=== PATIENT | female | born 1965 | race Caucasian/White ===

== ENCOUNTER → 2020-08-12 09:12 | Outpatient (BNVA) | payer OTHER, SELFPAY | PROVIDERS: PCP Internal Medicine; Visit Provider Surgery | DX: Z76.89 Persons encountering health services in other specified circumstances (principal) ==

== ENCOUNTER 2020-10-09 15:32 | Outpatient (REF) | payer OTHER, SELFPAY ==
--- NOTE | ~2020-10-09 | MM_ITS ---
EXAMINATION: MM SCREENING DIGITAL BREAST TOMOSYNTHESIS, BILATERAL CLINICAL INFORMATION: Screening. Asymptomatic. The lifetime risk of breast cancer based on the Tyrer-Cuzick Model is 16%. COMPARISON: Mammography: 09/24/2019, 09/04/2018, 04/04/2017; MRI breasts 04/09/2020 TECHNIQUE: Digital breast tomosynthesis is performed in both the craniocaudal and mediolateral oblique views along with computer-aided detection (CAD). Synthesized 2D images are generated from the tomosynthesis. Additional exaggerated right CC view is provided. FINDINGS: The breasts are heterogeneously dense, which may obscure small masses (ACR BI-RADS breast composition Category c). There are no significant masses, abnormal calcifications, or other abnormalities. No developing density. The skin contours are smooth. No significant changes. MM/MM tomosynthesis screening BI IMPRESSION: No mammographic evidence of malignancy. ASSESSMENT: BI-RADS 1: Negative RECOMMENDATION: Routine annual mammography screening. This patient's information was entered into a reminder system with a target due date for their next mammogram.
== END 2020-10-09 15:33 | disposition home or self-care (01) ==
LOC: HO.MAMMO 15:32
PROVIDERS: PCP Internal Medicine; Visit Provider Internal Medicine
DX: Z12.31 Encounter for screening mammogram for malignant neoplasm of breast (principal)
CPT/HCPCS: 77063; 77067

== ENCOUNTER → 2021-02-09 08:57 | Outpatient (BNVA) | payer OTHER, SELFPAY | PROVIDERS: PCP Internal Medicine; Visit Provider Surgery ==

== ENCOUNTER 2021-04-19 07:52 | Outpatient (REF) | payer OTHER, SELFPAY ==
--- NOTE | ~2021-04-19 | MR_ITS ---
EXAMINATION: MR BREAST WITHOUT AND WITH CONTRAST, BILATERAL CLINICAL INFORMATION: High-risk screening. COMPARISON: MRI 04/09/2020, 03/29/2019, 03/05/2018 TECHNIQUE: Imaging was performed with a dedicated breast coil. Prior to the administration of contrast, bilateral axial T1 and bilateral axial T2 weighted sequences were obtained. After the uneventful administration of?6.5 mL of Gadavist, dynamic contrast-enhanced VIBRANT series through the breasts in the axial plane were performed. Subtracted images were performed and reviewed. A delayed sagittal sequence through both breasts was acquired. Additionally, CAD post-processing, including maximum intensity projections, 3-D reconstructions and kinetic analysis, were performed an independent workstation and reviewed by the interpreting radiologist is a portion of this exam. FINDINGS: The patient's fibroglandular tissue demonstrates minimal background enhancement. LEFT BREAST: Stable focus of enhancement in the lower inner quadrant. No suspicious masslike or non-masslike enhancement. No abnormal skin thickening or nipple retraction. No abnormal architectural distortion. Review of the T2 weighted images demonstrates no fibrocystic changes or dilated ducts. Review of kinetic images reveals no additional findings. RIGHT BREAST: No suspicious masslike or non-masslike enhancement. No abnormal skin thickening or nipple retraction. No abnormal architectural distortion. Review of the T2 weighted images demonstrates no fibrocystic changes or dilated ducts. Review of kinetic images reveals no additional findings. There is no suspicious internal mammary chain or axillary adenopathy. Limited views of the chest and abdomen are unremarkable. MR/MR breast BI wo/w con IMPRESSION: No MR specific evidence of malignancy. ASSESSMENT: LEFT BREAST: BI-RADS 1-Negative RIGHT BREAST: BI-RADS 1-Negative RECOMMENDATIONS: Clinical follow-up. Continued annual mammographic surveillance. Further breast MRI as risk factors dictate.
== END 2021-04-19 07:53 | disposition home or self-care (01) ==
LOC: HO.MRI 07:52
PROVIDERS: PCP Internal Medicine; Visit Provider Surgery
DX: Z80.3 Family history of malignant neoplasm of breast (principal)
CPT/HCPCS: 77049; A9585

== ENCOUNTER → 2021-08-12 08:45 | Outpatient (BNVA) | payer OTHER, SELFPAY | PROVIDERS: PCP Internal Medicine; Referring Provider Internal Medicine; Visit Provider Surgery ==

== ENCOUNTER 2021-10-14 08:06 | Outpatient (REF) | payer OTHER, SELFPAY ==
--- NOTE | ~2021-10-14 | MM_ITS ---
EXAMINATION: MM SCREENING DIGITAL BREAST TOMOSYNTHESIS, BILATERAL CLINICAL INFORMATION: Screening. Asymptomatic. The lifetime risk of breast cancer based on the Tyrer-Cuzick Model is 16%. COMPARISON: Mammography: 10/09/2020, 09/24/2019, 09/04/2018, 04/04/2017, 03/16/2016; bilateral MR breast 04/19/2021. TECHNIQUE: Digital breast tomosynthesis is performed in both the craniocaudal and mediolateral oblique views along with computer-aided detection (CAD). Synthesized 2D images are generated from the tomosynthesis. Additional right MLO view is provided. FINDINGS: The breasts are heterogeneously dense, which may obscure small masses (ACR BI-RADS breast composition Category c). There are no significant masses, abnormal calcifications, or other abnormalities. Parenchymal pattern is similar to prior studies. The axilla and skin contours are unremarkable. There are no significant changes. MM/MM tomosynthesis screening BI IMPRESSION: No mammographic evidence of malignancy. ASSESSMENT: BI-RADS 1: Negative RECOMMENDATION: Routine annual mammography screening. This patient's information was entered into a reminder system with a target due date for their next mammogram.
== END 2021-10-14 08:07 | disposition home or self-care (01) ==
LOC: HO.MAMMO 08:06
PROVIDERS: Visit Provider Internal Medicine
DX: Z12.31 Encounter for screening mammogram for malignant neoplasm of breast (principal)
CPT/HCPCS: 77063; 77067

== ENCOUNTER 2022-04-27 09:30 | Outpatient (REF) | payer OTHER, SELFPAY ==
--- NOTE | ~2022-04-27 | MR_ITS ---
EXAMINATION: MR BREAST WITHOUT AND WITH CONTRAST, BILATERAL CLINICAL INFORMATION: 56-year-old for high-risk screening COMPARISON: MRI 04/19/2021, 04/09/2020, 03/29/2019, and 03/05/2018. Correlation to mammogram of 10/14/2021 TECHNIQUE: Imaging was performed with a dedicated breast coil. Prior to the administration of contrast, bilateral axial T1 and bilateral axial T2 weighted sequences were obtained. After the uneventful administration of?6.5 mL of Gadavist, dynamic contrast-enhanced VIBRANT series through the breasts in the axial plane were performed. Subtracted images were performed and reviewed. A delayed sagittal sequence through both breasts was acquired. Additionally, CAD post-processing, including maximum intensity projections, 3-D reconstructions and kinetic analysis, were performed an independent workstation and reviewed by the interpreting radiologist is a portion of this exam. FINDINGS: The patient's fibroglandular tissue demonstrates moderate background enhancement. There is moderate motion artifact which decreases the sensitivity of this examination. LEFT BREAST: No suspicious masslike or non-masslike enhancement. No abnormal skin thickening or nipple retraction. No abnormal architectural distortion. Review of the T2 weighted images demonstrates no fibrocystic changes or dilated ducts. Review of kinetic images reveals no additional findings. RIGHT BREAST: No suspicious masslike or non-masslike enhancement. No abnormal skin thickening or nipple retraction. No abnormal architectural distortion. Review of the T2 weighted images demonstrates no fibrocystic changes or dilated ducts. Review of kinetic images reveals no additional findings. There is no suspicious internal mammary chain or axillary adenopathy. Limited views of the chest and abdomen are unremarkable. MR/MR breast BI wo/w con IMPRESSION: No MR specific evidence of malignancy. ASSESSMENT: LEFT BREAST: BI-RADS 1-Negative RIGHT BREAST: BI-RADS 1-Negative RECOMMENDATIONS: Routine mammographic imaging as per most recent study and MRI as per high-risk protocol.
== END 2022-04-27 09:31 | disposition home or self-care (01) ==
LOC: HO.MRI 09:30
PROVIDERS: Visit Provider Surgery
DX: Z12.39 Encounter for other screening for malignant neoplasm of breast (principal); Z91.89 Other specified personal risk factors, not elsewhere classified; Z80.3 Family history of malignant neoplasm of breast
CPT/HCPCS: 77049; A9585

== ENCOUNTER → 2022-08-18 08:52 | Outpatient (BNVA) | payer OTHER, SELFPAY | PROVIDERS: PCP Internal Medicine; Visit Provider Surgery | DX: Z13.89 Encounter for screening for other disorder (principal) ==

== ENCOUNTER 2022-10-19 08:08 | Outpatient (REF) | payer OTHER, SELFPAY ==
--- NOTE | ~2022-10-19 | MM_ITS ---
EXAMINATION: MM SCREENING DIGITAL BREAST TOMOSYNTHESIS, BILATERAL CLINICAL INFORMATION: Screening. Asymptomatic. The lifetime risk of breast cancer based on the Tyrer-Cuzick Model is 16%. COMPARISON: Mammography: 10/14/2021, 10/09/2020, 09/24/2019; MR breasts 04/27/2022. TECHNIQUE: Digital breast tomosynthesis is performed in both the craniocaudal and mediolateral oblique views along with computer-aided detection (CAD). Synthesized 2D images are generated from the tomosynthesis. FINDINGS: The breasts are heterogeneously dense, which may obscure small masses (ACR BI-RADS breast composition Category c). There is fine fibronodular parenchymal pattern is similar to prior exams. There are no significant masses, abnormal calcifications, or other abnormalities. Parenchymal pattern is similar to prior studies. There is no developing density or architectural abnormality. The axilla and skin contours are unremarkable. No significant changes. MM/MM tomosynthesis screening BI IMPRESSION: No mammographic evidence of malignancy. ASSESSMENT: BI-RADS 1: Negative RECOMMENDATION: Routine annual mammography screening. This patient's information was entered into a reminder system with a target due date for their next mammogram.
== END 2022-10-19 08:09 | disposition home or self-care (01) ==
LOC: HO.MAMMO 08:08
PROVIDERS: PCP Internal Medicine; Visit Provider Internal Medicine
DX: Z12.31 Encounter for screening mammogram for malignant neoplasm of breast (principal)
CPT/HCPCS: 77063; 77067

== ENCOUNTER 2023-02-21 08:57 | Outpatient (AMB) | payer OTHER, SELFPAY ==
--- NOTE | 2023-02-21 09:04 | MHC.OFFVIS ---
Intake Vital Signs 02/21/23 09:12 Height 5 ft 3 in Weight 143 lb 8 oz BMI 25.4 BP 134/74 Blood Pressure Location Lt brachial Position Sitting Pulse 80 Intake Visit Reasons: 6 mth breast exam Intake Note: Patient is seen in office for 6 month follow up visit, breast exam. Pt c/o: denies any concerns since last visit Pie Baker Required: No Clinical Data Management Director: Clinical Data Management Director Present Accompanied by: Self / Same As Patient Allergies Penicillins [PENICILLINS] Allergy (Unknown, Unverified 02/21/23 09:12) UNKNKOW Medication List - Last Reconciled 02/21/23 by Yaya Rhodes MD aspirin 81 mg PO DAILY ezetimibe 10 mg PO DAILY HPI HPI Comments History of Present Illness Details 57-year-old female patient, former patient of Dr. Zuniga, being followed as part of the high risk breast cancer protocol. She is a patient of Harmony Massey and Dylan Morales found to be high risk for breast cancer with a calculated Tyrer-Cuzick score of 24% lifetime risk of breast cancer. Her sister has a history of breast cancer developed at the age of 50. Her sister is now in her 70s and is disease free. She is unsure of other family history. She has been undergoing twice yearly breast examinations and yearly breast MRI alternated with mammograms at 6 months intervals. Her latest bilateral mammogram dated 10/19/2022 revealed no mammographic evidence of malignancy (BI-RADS 1, ACR BI-RADS breast composition category C). A breast MRI on 04/27/2022 revealed no MR specific evidence of malignancy (BI-RADS 1 negative bilaterally). She denies any new breast symptoms or breast pain. Genetic testing performed in 2021 revealed no genetic mutations of known significance and no mutations of unknown significance. Her breast cancer risk score was calculated at 32.4 % well above the 20% threshold placing her at high risk. [facility] Medical History Hypercholesterolemia Surgical History History of adenoidectomy History of dental surgery History of ear surgery Hx of eye surgery (01/2023) Family History Sister History of breast cancer Social History Alcohol intake: current Alcohol intake frequency: holidays/special occasions only Review of Systems Const All systems reviewed & are unremarkable except as noted in HPI and below Denies chills, Denies fever(s), Denies headache(s) and Denies poor appetite ENT Denies dizziness and Denies headache(s) Card Denies chest pain, Denies rapid heart rate, Denies palpitations and Denies slow heart rate Resp Denies chest congestion, Denies cough, Denies pain on inspiration and Denies wheezing GI Denies abdominal pain, Denies bloating, Denies change in stool character, Denies constipation, Denies diarrhea, Denies nausea, Denies vomiting and Denies hematemesis Denies nipple discharge Musc Denies back pain, Denies arthralgias, Denies joint swelling and Denies numbness Skin/Breast Denies breast skin changes, Denies breast pain, Denies change in breast shape, Denies change in pigmentation, Denies nipple discharge, Denies erythema and Denies rash Neuro Denies confusion, Denies dizziness, Denies headache(s) and Denies numbness Psych Denies anxiety, Denies confusion and Denies depression Endo Denies palpitations Gary/Lymph Denies easy bleeding, Denies easy bruising and Denies lymphadenopathy Aller/Immun Denies wheezing Physical Exam Vital Signs: Last Vital Signs Pulse 80 02/21/23 09:12 BP 134/74 02/21/23 09:12 BMI result Body Mass Index 25.4 Const General: No confusion Nutritional Appearance: well nourished Orientation/consciousness: No confusion Eyes Sclerae: sclerae normal EOM: EOMs intact bilaterally Neck Neck: Yes normal visual inspection and Yes no lymphadenopathy Chest Other: Right breast: no nipple discharge or retraction, no skin changes, no axillary lymphadenopathy, no supraclavicular or infraclavicular fullness. Left breast: No nipple discharge or retraction, no skin changes, no axillary lymphadenopathy, no supraclavicular or infraclavicular fullness. Resp Effort & Inspection: normal respiratory effort, no cough and no respiratory distress Cardio Jugular venous distension: no JVD Skin General skin exam: dry skin Rashes: no rashes Neuro General: No confusion Extrem General: Yes full ROM and Yes no clubbing, cyanosis or edema Assessment & Plan Assessment & Plan (1) At high risk for breast cancer: Code(s): Z91.89 - Other specified personal risk factors, not elsewhere classified (2) Family history of breast cancer in first degree relative: Code(s): Z80.3 - Family history of malignant neoplasm of breast Plan 57-year-old female patient found to have strong family history of breast cancer due to her sister having breast cancer at the age of 50. She is being followed on a high risk breast cancer protocol. Genetic testing was negative for known mutations of clinical significance and mutations of unknown clinical significance. She remains asymptomatic and denies any changes on her self examination. Both mammogram and MRI have been normal. Examination today reveals no suspicious findings in either breast. Recommend continuing the annual breast MRI which will be due in April 2023 and mammogram due in October 2023.. She should return in 6 months for follow-up examination. Orders: Orders MR breast BI wo/w con 04/28/23 Z80.3 - Family history of malignant neoplasm of breast, Z91.89 - Other specified personal risk factors, not elsewhere classified Coding Level of Care Code Est Pt Level 3 (29817) Diagnoses At high risk for breast cancer Z91.89 Family history of breast cancer in first degree relative Z80.3
[2023-02-21 09:12] VITALS: BP 134/74; PULSE 80; BMI 25.4
== END 2023-02-21 09:23 | disposition home or self-care (01) ==
PROVIDERS: PCP Internal Medicine; Visit Provider Surgery
DX: Z91.89 Other specified personal risk factors, not elsewhere classified (principal); Z80.3 Family history of malignant neoplasm of breast
CPT/HCPCS: 99213

== ENCOUNTER → 2023-02-21 08:57 | Outpatient (BNVA) | payer OTHER, SELFPAY | PROVIDERS: PCP Internal Medicine; Visit Provider Surgery ==

== ENCOUNTER 2023-05-11 15:29 | Outpatient (REF) | payer OTHER, SELFPAY ==
--- NOTE | ~2023-05-11 | MR_ITS ---
EXAMINATION: MR BREAST WITHOUT AND WITH CONTRAST, BILATERAL CLINICAL INFORMATION: High-risk screening. COMPARISON: 07/27/2022, 04/19/2021 TECHNIQUE: Imaging was performed with a dedicated breast coil. Prior to the administration of contrast, bilateral axial T1 and bilateral axial T2 weighted sequences were obtained. After the uneventful administration of?7 mL of Gadavist, dynamic contrast-enhanced VIBRANT series through the breasts in the axial plane were performed. Subtracted images were performed and reviewed. A delayed sagittal sequence through both breasts was acquired. Additionally, CAD post-processing, including maximum intensity projections, 3-D reconstructions and kinetic analysis, were performed an independent workstation and reviewed by the interpreting radiologist is a portion of this exam. FINDINGS: The patient's fibroglandular tissue demonstrates moderate background enhancement. LEFT BREAST: No suspicious masslike or non-masslike enhancement. No abnormal skin thickening or nipple retraction. No abnormal architectural distortion. Review of the T2 weighted images demonstrates no fibrocystic changes or dilated ducts. Review of kinetic images reveals no additional findings. RIGHT BREAST: No suspicious masslike or non-masslike enhancement. No abnormal skin thickening or nipple retraction. No abnormal architectural distortion. Review of the T2 weighted images demonstrates no fibrocystic changes or dilated ducts. Review of kinetic images reveals no additional findings. There is no suspicious internal mammary chain or axillary adenopathy. Limited views of the chest and abdomen are unremarkable. MR/MR breast BI wo/w con IMPRESSION: No MR specific evidence of malignancy. ASSESSMENT: LEFT BREAST: BI-RADS 1-Negative RIGHT BREAST: BI-RADS 1-Negative RECOMMENDATIONS: Clinical follow-up. Continued annual mammographic surveillance. Further breast MRI as risk factors dictate.
== END 2023-05-11 15:30 | disposition home or self-care (01) ==
LOC: HO.MRI 15:29
PROVIDERS: PCP Internal Medicine; Visit Provider Surgery
DX: Z91.89 Other specified personal risk factors, not elsewhere classified (principal); Z80.3 Family history of malignant neoplasm of breast
CPT/HCPCS: 77049; A9585

== ENCOUNTER 2023-08-25 08:57 | Outpatient (AMB) | payer OTHER, SELFPAY ==
--- NOTE | 2023-08-25 09:04 | MHC.OFFVIS ---
Intake Vital Signs 08/25/23 09:11 Height 5 ft 3 in Weight 149 lb 2 oz BMI 26.4 BP 122/75 Blood Pressure Location Lt brachial Position Sitting Pulse 80 Intake Visit Reasons: 6 mth breast exam Intake Note: Patient is seen in office for 6 month follow up visit, breast exam. Pt c/o: denies any concerns or changes at the time of visit mm sched:10/23/23 B MRI:05/11/23 Institutional Asset Manager Required: No Accompanied by: Self / Same As Patient Allergies Penicillins [PENICILLINS] Allergy (Unknown, Unverified 08/25/23 09:08) UNKNKOW Medication List - Last Reconciled 08/25/23 by Yaya Rhodes MD aspirin 81 mg PO DAILY ezetimibe 10 mg PO DAILY HPI HPI Comments History of Present Illness Details 57-year-old female patient, former patient of Dr. Zuniga, being followed as part of the high risk breast cancer protocol. She is a patient of Harmony Massey and Dylan Morales found to be high risk for breast cancer with a calculated Tyrer-Cuzick score of 24% lifetime risk of breast cancer. Her sister has a history of breast cancer developed at the age of 50. Her sister is now in her 70s and is disease free. She is unsure of other family history. She has been undergoing twice yearly breast examinations and yearly breast MRI alternated with mammograms at 6 months intervals. Her latest bilateral mammogram dated 10/19/2022 revealed no mammographic evidence of malignancy (BI-RADS 1, ACR BI-RADS breast composition category C). A breast MRI on 05/11/2023 revealed no MR evidence of malignancy (BI-RADS 1 bilaterally). She denies any new breast symptoms or breast pain. Genetic testing performed in 2021 revealed no genetic mutations of known significance and no mutations of unknown significance. Her breast cancer risk score was calculated at 32.4 % well above the 20% threshold placing her at high risk. [facility] Medical History Hypercholesterolemia Surgical History Hx of eye surgery (01/2023) History of dental surgery History of ear surgery History of adenoidectomy Family History Sister History of breast cancer Social History Alcohol intake: current Alcohol intake frequency: holidays/special occasions only Review of Systems Const All systems reviewed & are unremarkable except as noted in HPI and below Denies chills, Denies fever(s), Denies headache(s) and Denies poor appetite ENT Denies dizziness and Denies headache(s) Card Denies chest pain, Denies rapid heart rate, Denies palpitations and Denies slow heart rate Resp Denies chest congestion, Denies cough, Denies pain on inspiration and Denies wheezing GI Denies abdominal pain, Denies bloating, Denies change in stool character, Denies constipation, Denies diarrhea, Denies nausea, Denies vomiting and Denies hematemesis Denies nipple discharge Musc Denies back pain, Denies arthralgias, Denies joint swelling and Denies numbness Skin/Breast Denies breast skin changes, Denies breast pain, Denies change in breast shape, Denies change in pigmentation, Denies nipple discharge, Denies erythema and Denies rash Neuro Denies confusion, Denies dizziness, Denies headache(s) and Denies numbness Psych Denies confusion Endo Denies palpitations Gary/Lymph Denies easy bleeding, Denies easy bruising and Denies lymphadenopathy Aller/Immun Denies wheezing Physical Exam Vital Signs: Last Vital Signs Pulse 80 08/25/23 09:11 BP 122/75 08/25/23 09:11 BMI result Body Mass Index 26.4 Const General: No confusion Nutritional Appearance: well nourished Orientation/consciousness: No confusion Eyes Sclerae: sclerae normal EOM: EOMs intact bilaterally Neck Neck: Yes normal visual inspection and Yes no lymphadenopathy Chest Other: Right breast: no nipple discharge or retraction, no skin changes, no axillary lymphadenopathy, no supraclavicular or infraclavicular fullness. Left breast: No nipple discharge or retraction, no skin changes, no axillary lymphadenopathy, no supraclavicular or infraclavicular fullness. Resp Effort & Inspection: normal respiratory effort, no cough and no respiratory distress Cardio Jugular venous distension: no JVD Skin General skin exam: dry skin Rashes: no rashes Neuro General: No confusion Extrem General: Yes full ROM and Yes no clubbing, cyanosis or edema Assessment & Plan Assessment & Plan (1) At high risk for breast cancer: Code(s): Z91.89 - Other specified personal risk factors, not elsewhere classified (2) Family history of breast cancer in first degree relative: Code(s): Z80.3 - Family history of malignant neoplasm of breast Plan 57-year-old female patient found to have strong family history of breast cancer due to her sister having breast cancer at the age of 50. She is being followed on a high risk breast cancer protocol. Genetic testing was negative for known mutations of clinical significance and mutations of unknown clinical significance. She remains asymptomatic and denies any changes on her self examination. Both mammogram and MRI have been normal. Examination today reveals no suspicious findings in either breast. Recommend continuing the annual breast MRI which will be due in April 2024 and mammogram scheduled for 10/23/2023. She should return in 6 months for follow-up examination. Coding Level of Care Code Est Pt Level 3 (96150) Diagnoses At high risk for breast cancer Z91.89 Family history of breast cancer in first degree relative Z80.3
[2023-08-25 09:11] VITALS: BP 122/75; PULSE 80; BMI 26.4
== END 2023-08-25 09:21 | disposition home or self-care (01) ==
PROVIDERS: PCP Internal Medicine; Visit Provider Surgery
DX: Z80.3 Family history of malignant neoplasm of breast (principal); Z91.89 Other specified personal risk factors, not elsewhere classified
CPT/HCPCS: 99213

== ENCOUNTER → 2023-08-25 08:57 | Outpatient (BNVA) | payer OTHER, SELFPAY | PROVIDERS: PCP Internal Medicine; Visit Provider Surgery ==

== ENCOUNTER 2023-10-23 07:55 | Outpatient (REF) | payer OTHER, SELFPAY | END 2023-10-23 07:56 | disposition home or self-care (01) | LOC: HO.MAMMO 07:55 | PROVIDERS: PCP Internal Medicine; Visit Provider Internal Medicine | DX: Z12.31 Encounter for screening mammogram for malignant neoplasm of breast (principal) | CPT/HCPCS: 77063; 77067 ==

== ENCOUNTER → 2023-10-23 08:15 | Outpatient (BNV) | payer OTHER, SELFPAY | PROVIDERS: PCP Internal Medicine; Visit Provider Radiology Diagnostic Radiology | DX: Z12.31 Encounter for screening mammogram for malignant neoplasm of breast (principal) | CPT/HCPCS: 77063; 77067 ==

== ENCOUNTER 2024-02-27 15:27 | Outpatient (AMB) | payer OTHER, SELFPAY ==
--- NOTE | 2024-02-27 15:31 | A.OFFVIS_ITS ---
Vital Signs 02/27/24 15:40 Height 5 ft 3 in Weight 147 lb BMI 26.0 BP 155/73 H Blood Pressure Location Lt brachial Position Sitting Pulse 83 Intake Visit Reasons: 6 mth breast exam Intake Note: Patient is seen in office for 6 month follow up visit, breast exam. Pt c/o: denies any concerns at the time of visit mm: 10/23/23 MRI: 05/11/23 Skip Pit Worker Required: No Board Stacker: Board Stacker Present Accompanied by: Self / Same As Patient Allergies Penicillins [PENICILLINS] Allergy (Unknown, Unverified 02/27/24 15:32) UNKNKOW Medication List - Last Reconciled 02/28/24 by Yaya Rhodes MD aspirin 81 mg PO DAILY ezetimibe 10 mg PO DAILY HPI Comments Details: 58-year-old female patient, former patient of Dr. Zuniga, being followed as part of the high risk breast cancer protocol. [facility] lifetime risk of breast cancer was calculated at 24%. Her sister developed breast cancer at the age of 50. Her sister remains disease free. She is unsure of other family history. She has been undergoing twice yearly breast examinations and yearly breast MRI alternated with mammograms at 6 months intervals. Her latest bilateral mammogram dated 10/23/2023 revealed no mammographic evidence of malignancy (BI-RADS 1, ACR BI-RADS breast composition category C). A breast MRI on 05/11/2023 revealed no MR evidence of malignancy (BI-RADS 1 bilaterally). She denies any new breast symptoms or breast pain. Genetic testing performed in 2021 revealed no genetic mutations of known significance and no mutations of unknown significance. Her breast cancer risk score was calculated at 32.4 % well above the 20% threshold placing her at high risk. COUNT INCLUDES THE [facility] Medical History Hypercholesterolemia Surgical History Hx of eye surgery (01/2023) History of dental surgery History of ear surgery History of adenoidectomy Family History Sister History of breast cancer Social History Alcohol intake: current Alcohol intake frequency: holidays/special occasions only Review of Systems Const All systems reviewed & are unremarkable except as noted in HPI and below Denies chills, Denies fever(s), Denies headache(s) and Denies poor appetite ENT Denies dizziness and Denies headache(s) Card Denies chest pain, Denies rapid heart rate, Denies palpitations and Denies slow heart rate Resp Denies chest congestion, Denies cough, Denies pain on inspiration and Denies wheezing GI Denies abdominal pain, Denies bloating, Denies change in stool character, Denies constipation, Denies diarrhea, Denies nausea, Denies vomiting and Denies hematemesis Denies nipple discharge Musc Denies back pain, Denies arthralgias, Denies joint swelling and Denies numbness Skin/Breast Denies breast skin changes, Denies breast pain, Denies change in breast shape, Denies change in pigmentation, Denies nipple discharge, Denies erythema and Denies rash Neuro Denies confusion, Denies dizziness, Denies headache(s) and Denies numbness Psych Denies confusion Endo Denies palpitations Gary/Lymph Denies easy bleeding, Denies easy bruising and Denies lymphadenopathy Aller/Immun Denies wheezing Physical Exam Vital Signs: Last Vital Signs Pulse 83 02/27/24 15:40 BP 155/73 H 02/27/24 15:40 BMI result Body Mass Index 26.0 Const General: No confusion Nutritional Appearance: well nourished Orientation/consciousness: No confusion Eyes Sclerae: sclerae normal EOM: EOMs intact bilaterally Neck Neck: Yes normal visual inspection and Yes no lymphadenopathy Chest Other: Right breast: no nipple discharge or retraction, no skin changes, no axillary lymphadenopathy, no supraclavicular or infraclavicular fullness. Left breast: No nipple discharge or retraction, no skin changes, no axillary lymphadenopathy, no supraclavicular or infraclavicular fullness. Resp Effort & Inspection: normal respiratory effort, no cough and no respiratory distress Cardio Jugular venous distension: no JVD Skin General skin exam: dry skin Rashes: no rashes Neuro General: No confusion Extrem General: Yes full ROM and Yes no clubbing, cyanosis or edema Assessment & Plan Assessment & Plan (1) At high risk for breast cancer: Code(s): Z91.89 - Other specified personal risk factors, not elsewhere classified Category: Medical (2) Family history of breast cancer in first degree relative: Code(s): Z80.3 - Family history of malignant neoplasm of breast Category: Medical Plan 58-year-old female patient found to have strong family history of breast cancer due to her sister having breast cancer at the age of 50. She is being followed on a high risk breast cancer protocol. Genetic testing was negative for known mutations of clinical significance and mutations of unknown clinical significance. She remains asymptomatic and denies any changes on her self examination. Both mammogram and MRI have been normal. Examination today reveals no suspicious findings in either breast. Recommend continuing the annual breast MRI which will be due in April 2024 and mammogram due in October 2024.. She should return in 6 months for follow-up examination. Coding Level of Care Code Est Pt Level 3 (49935) Diagnoses At high risk for breast cancer Z91.89 Family history of breast cancer in first degree relative Z80.3
[2024-02-27 15:40] VITALS: BP 155/73; PULSE 83; BMI 26.0
== END 2024-02-27 15:50 | disposition home or self-care (01) ==
PROVIDERS: PCP Internal Medicine; Visit Provider Surgery
DX: Z80.3 Family history of malignant neoplasm of breast (principal); Z91.89 Other specified personal risk factors, not elsewhere classified
CPT/HCPCS: 99213

== ENCOUNTER → 2024-02-27 15:27 | Outpatient (BNVA) | payer OTHER, SELFPAY | PROVIDERS: PCP Internal Medicine; Visit Provider Surgery ==

== ENCOUNTER → 2024-09-13 08:17 | Outpatient (AMB) | payer OTHER, SELFPAY ==
--- NOTE | 2024-09-13 08:30 | A.OFFVIS_ITS ---
Vital Signs 09/13/24 08:37 Height 5 ft 3 in Weight 145 lb BMI 25.7 BP 140/77 H Blood Pressure Location Rt brachial Position Sitting Pulse 80 Intake Visit Reasons: 6 Month Breast Exam Intake Note: Patient here for 6m breast exam. Denies breasts lumps, rash, nipple discharge. Patient reports recent Mohs on Rt nasal root for basal cell carcinoma. Scar healing well. Bass Mechanism Maker Required: No Accompanied by: Self / Same As Patient Allergies Penicillins [PENICILLINS] Allergy (Unknown, Unverified 09/13/24 08:38) UNKNKOW HPI Comments Details: 59-year-old female patient, former patient of Dr. Zuniga, being followed as part of the high risk breast cancer protocol. Her [facility] remaining lifetime risk of breast cancer was calculated at 24%. Her sister developed breast cancer at the age of 50. Her sister remains disease free. She is unsure of other family history. She has been undergoing twice yearly breast examinations and yearly breast MRI alternated with mammograms at 6 months intervals. Her latest bilateral mammogram dated 10/23/2023 revealed no mammographic evidence of malignancy (BI-RADS 1, ACR BI-RADS breast composition category C). She is scheduled for her annual mammogram in 11/04/2024. A breast MRI on 05/11/2023 revealed no MR evidence of malignancy (BI-RADS 1 bilaterally). No breast MRI was performed last year. Genetic testing performed in 2021 revealed no genetic mutations of known significance and no mutations of unknown significance. Her breast cancer risk score was calculated at 32.4 % well above the 20% threshold placing her at high risk. [facility] Medical History Mohs defect Hypercholesterolemia Surgical History Hx of eye surgery (01/2023) History of dental surgery History of ear surgery History of adenoidectomy Family History Sister History of breast cancer Social History Alcohol intake: current Alcohol intake frequency: holidays/special occasions only Review of Systems Const All systems reviewed & are unremarkable except as noted in HPI and below Neuro Denies confusion Psych Denies confusion Physical Exam Vital Signs: Last Vital Signs Pulse 80 09/13/24 08:37 BP 140/77 H 09/13/24 08:37 BMI result Body Mass Index 25.7 Const General: No confusion Nutritional Appearance: well nourished Orientation/consciousness: No confusion Eyes Sclerae: sclerae normal EOM: EOMs intact bilaterally Neck Neck: Yes normal visual inspection and Yes no lymphadenopathy Chest Other: Right breast: no nipple discharge or retraction, no skin changes, no axillary lymphadenopathy, no supraclavicular or infraclavicular fullness. Left breast: No nipple discharge or retraction, no skin changes, no axillary lymphadenopathy, no supraclavicular or infraclavicular fullness. Resp Effort & Inspection: normal respiratory effort, no cough and no respiratory distress Cardio Jugular venous distension: no JVD Skin General skin exam: dry skin Rashes: no rashes Neuro General: No confusion Extrem General: Yes full ROM and Yes no clubbing, cyanosis or edema Assessment & Plan Assessment & Plan (1) Family history of breast cancer in first degree relative: Code(s): Z80.3 - Family history of malignant neoplasm of breast Category: Medical (2) At high risk for breast cancer: Code(s): Z91.89 - Other specified personal risk factors, not elsewhere classified Category: Medical Plan 59-year-old female patient found to have strong family history of breast cancer due to her sister having breast cancer at the age of 50. She is being followed on a high risk breast cancer protocol. Genetic testing was negative for known mutations of clinical significance and mutations of unknown clinical significance. She remains asymptomatic and denies any changes on her self examination. She is due for a mammogram on 11/04/2024. She will be scheduled for a breast MRI in 05/26/2025. Examination today reveals no suspicious findings in either breast. She should return in 6 months for follow-up examination. Orders: Orders breast BI wo/w con 05/12/25 Z80.3 - Family history of malignant neoplasm of breast, Z91.89 - Other specified personal risk factors, not elsewhere classified Coding Level of Care Code Est Pt Level 3 (46862) Complex EM visit Add On G2211 Diagnoses Family history of breast cancer in first degree relative Z80.3 At high risk for breast cancer Z91.89
== END | disposition home or self-care (01) ==
PROVIDERS: PCP Internal Medicine; Visit Provider Surgery
CPT/HCPCS: 99213

== ENCOUNTER 2024-11-04 07:59 | Outpatient (REF) | payer OTHER, SELFPAY | END 2024-11-04 08:00 | disposition home or self-care (01) | LOC: HO.MAMMO 07:59 | PROVIDERS: PCP Internal Medicine; Visit Provider Internal Medicine | DX: Z12.31 Encounter for screening mammogram for malignant neoplasm of breast (principal) | CPT/HCPCS: 77063; 77067 ==

== ENCOUNTER → 2024-11-04 08:15 | Outpatient (BNV) | payer OTHER, SELFPAY | PROVIDERS: PCP Internal Medicine; Visit Provider Internal Medicine | DX: Z12.31 Encounter for screening mammogram for malignant neoplasm of breast (principal) | CPT/HCPCS: 77063; 77067 ==

== ENCOUNTER 2025-03-13 08:08 | Outpatient (AMB) | payer OTHER, SELFPAY ==
--- OUTSIDE RECORDS SUMMARY | 2025-03-11 08:26 | XMS_ITS ---
Author Organization [facility] Address [address] [place] [address] Care Team Providers Care Retail Sales Merchandiser Development Name Role Phone SUZANNA ACOSTA Primary Care Provider [phone] Reason For Referral Reason NEOS Diagnosis 1 Right elbow pain (M2 5.521) Referral Organization [facility] [address] Referring Provider First Name SUZANNA Referring Provider Last Name KARLA Referring Provider Speciality Internal M edicine Referred Provider Specialty Orthopedic S urgery General Notes Lizz Sharpe 12/2024 12:27:54 PM > Pt given referral faxed to [phone] Referral Priority Routine Encounters Encounter Location Date Provider Diagnosis [facility] [address] [facility] [address] [place] [address] 03/11/2025 SUZANNA ACOSTA Plan Of Treatment Referrals Referral Date Details 03/11/2025 03/11/2025, [facility]OS Next Appt Details Provider Name:DALILA PEÑA, 06/11/2025 08:30:00 AM, [address], [facility] [address], [place], [address], Progress Notes * PAULINA GARCIAEEDOB:[birth year] (59 yo F)Acc No.[id number]:03/11/2025 Patient: DILAN SANTAMARIA :1965 A ge:59 Y S ex:Female Address:[address] [place] [id number] Subjective: * Chief Complaints: * * Medical History: * Surgical History: * Hospitalization/Major Diagno stic Procedure: * Medications: Objective: * Vitals: * Physical Examination: Assessment: Plan: * Treatment: * Procedure Codes: * true * Date: Generated for Valeriano elizabeth/Taiwo/Petr on: 0 03/13/2025 08:12 AM EDT Consultation Request Notes Referral Date Referring Provider Referred Provider Not es 03/11/2025 SUZANNA ACOSTA [facility]OS
--- OUTSIDE RECORDS SUMMARY | 2025-03-13 08:12 | XMS_ITS | Patient Health Record ---
[facility] Address [address] [place] [address] Care Team Providers Care Hardware Engineer Name Role Phone Jasson Storey MD Primary Care Provider Severiano Dozier Unavailable [phone] Allergies Allergen (clinical drug ingredient) Drug/Non Drug Allergy documented on EMR Reaction Allergy Type Onset Date Status Penicillin unsure Drug Allergy Active Reason For Referral No Information Medications Medication SIG (Take, Route, Frequency, Duration) Notes Start Date End Date Status Calcium + D 600-200 MG-UNIT 1 tablet with food Orally Once a day; Duration: 30 day(s) Active Social History Alcohol Screen Question Answer Notes Did you have a drink containing alcohol in the p ast year? Yes Points 0 Interpretation Negative Problems Problem Type SNOMED Code ICD Code Onset Dates Problem Status W/U Status Risk Notes Problem Hallux Valgus (735.0) Active confirmed Plan Of Treatment Pending Test Test Name Order Date X ray : Foot, left 3V 09/12/2012 X ray : Foot, right 3V 09/12/2012 Insurance Providers Payer Name Payer Address Payer Phone Subscriber Number Group Number Insured Name Patient Relationship to Insured Coverage Start Date Coverage End Date [employer] [address] [place] [phone] [id number] Keiko Taylor Self - patient is the insured Medical (General) History Medical History History ICD Code anxiety back, hip, knee pain chicken pox Surgical History Surgery Date(Month/Year) adnoidectomy (child rodriguez) oral surgery 2007
--- OUTSIDE RECORDS SUMMARY | 2025-03-13 08:13 | XMS_ITS | Encounter Summary ---
Author Organization [facility] Address [address] [place] [address] Care Team Providers Care Slip Mixer Name Role Phone Fish Dodson VINI Primary Care Provider [phone] Encounter Details Date Type Department Care Team (Latest Contact Info) Description 01/13/2025 Lab Requisition [facility] - Main Lab [address] [place] [address] Dylan Morales MD [address] [address] Encounter for gynecological examination (general) (routine) without abnormal findings Social History Tobacco Use Types Packs/Day Years Used Date Smoking Tobacco: Never Assessed Comments Unknown Sex and Gender Information Value Date Recorded Sex Assigned at Not on file Legal Sex Female 6:44 AM EST Gender Identity Not on file Sexual Orientation Not on file documented as of this encounter Plan of Treatment Not on file documented as of this encounter Procedures Procedure Name Priority Date/Time Associated Diagnosis Comments PAP SMEAR Routine 01/10/2025 12:00 AM EDT Encounter for gynecological examination (general) (routine) without abnormal findings documented in this encounter Results * Pap smear (01/10/2025 12:00 AM EDT) Interpretation Negative for intraepithelial lesion or malignancy 01/15/2025 1:23 PM EDT [facility] ([facility]) [facility] General Categorization Negative 01/15/2025 1:23 PM EDT [facility] Specimen Adequacy Satisfactory for evaluation, endocervical/savage sformation zone component present 01/15/2025 1:23 PM [facility] Pap Methodology Liquid Based Pap Test 01/15/2025 1:23 PM [facility] Disclaimer The Pap test is a screening test which carries an inherent false negative rate. These test results should be correlated with the patient's clinical findings and history. This Pap test was processed using an automated screening system. Technical cytopathology services provided by [facility], at [address] [place] [address] (CLIA # [id number]/James Van MD, Youth Services Librarian.) 01/15/2025 1:23 PM [facility] Console Pap Interpretation Reported 01/15/2025 1:23 PM [facility] Brushing/Spatula Cervix uteri structure / Unknown 01/10/2025 01/13/2025 7:28 AM EDT us Dylan Morales MD LAB CYTOLOGY ORDERABLES Final Result [facility] [address] [place] [address], [place] [phone] documented in this encounter Visit Diagnoses Diagnosis Encounter for gynecological examination (general) (routine) without abnormal findings documented in this encounter Care Teams Slip Mixer Relationship Specialty Start Date End Date Fish Dodson NP [address] [address] PCP - General Nurse Practitioner 12/09/24 documented as of this encounter
--- NOTE | 2025-03-13 08:15 | MHC.OFFVIS ---
Vital Signs 03/13/25 08:22 Height 5 ft 3 in Weight 144 lb BMI 25.5 BP 149/83 H Blood Pressure Location Lt brachial Position Sitting Pulse 78 Intake Visit Reasons: 6 Month Breast Exam Intake Note: Patient is seen in office for 6 month follow up visit, breast exam. Pt c/o:no concerns. Denies br lumps, rash, pain, nipple discharge. Patient fell 1wk ago and fractured elbow. Today she is wearing a Rt arm sling mm:05/11/23 MRI:11/04/24 Ecommerce Project Manager Required: No Accompanied by: Self / Same As Patient Allergies Penicillins (PENICILLINS) Allergy (Unknown, Unverified 03/13/25 08:25) UNKNKOW HPI Comments Details: 59-year-old female patient, former patient of Dr. Zuniga, being followed as part of the high risk breast cancer protocol. Her [facility] remaining lifetime risk of breast cancer was calculated at 24%. Her sister developed breast cancer at the age of 50. Her sister remains disease free. She is unsure of other family history. She has been undergoing twice yearly breast examinations and yearly breast MRI alternated with mammograms at 6 months intervals. Her latest bilateral mammogram dated 11/04/2024 revealed no mammographic evidence of malignancy (BI-RADS 1, ACR BI-RADS breast composition category C). She is scheduled for her annual mammogram in 11/10/2025. A breast MRI on 05/11/2023 revealed no MR evidence of malignancy (BI-RADS 1 bilaterally). No breast MRI was performed last year. Genetic testing performed in 2021 revealed no genetic mutations of known significance and no mutations of unknown significance. Her breast cancer risk score was calculated at 32.4 % well above the 20% threshold placing her at high risk. She is planned to have a breast MRI in May 2025. She reports tripping on a computer cord and fracturing her right elbow 1 week ago. She is awaiting orthopedic evaluation later today. [facility] Medical History Mohs defect Hypercholesterolemia Surgical History Hx of eye surgery (01/2023) History of dental surgery History of ear surgery History of adenoidectomy Family History Sister History of breast cancer Social History Alcohol intake: current Alcohol intake frequency: holidays/special occasions only Review of Systems Const All systems reviewed & are unremarkable except as noted in HPI and below Neuro Denies confusion Psych Denies confusion Physical Exam Vital Signs: Last Vital Signs Pulse 78 03/13/25 08:22 BP 149/83 H 03/13/25 08:22 BMI result Body Mass Index 25.5 Const General: No confusion Nutritional Appearance: well nourished Orientation/consciousness: No confusion Eyes Sclerae: sclerae normal EOM: EOMs intact bilaterally Neck Neck: Yes normal visual inspection and Yes no lymphadenopathy Chest Other: Right breast: no nipple discharge or retraction, no skin changes, no axillary lymphadenopathy, no supraclavicular or infraclavicular fullness. Left breast: No nipple discharge or retraction, no skin changes, no axillary lymphadenopathy, no supraclavicular or infraclavicular fullness. Resp Effort & Inspection: normal respiratory effort, no cough and no respiratory distress Cardio Jugular venous distension: no JVD Skin General skin exam: dry skin Rashes: no rashes Neuro General: No confusion Extrem General: Yes full ROM and Yes no clubbing, cyanosis or edema Assessment & Plan Assessment & Plan (1) Family history of breast cancer in first degree relative: Code(s): Z80.3 - Family history of malignant neoplasm of breast Category: Medical (2) At high risk for breast cancer: Code(s): Z91.89 - Other specified personal risk factors, not elsewhere classified Category: Medical Plan 59-year-old female patient found to have strong family history of breast cancer due to her sister having breast cancer at the age of 50. She is being followed on a high risk breast cancer protocol. Genetic testing was negative for known mutations of clinical significance and mutations of unknown clinical significance. She remains asymptomatic and denies any changes on her self examination. Her most recent mammogram of 11/04/2024 revealed no mammographic evidence of malignancy (BI-RADS 1). She will be due for a breast MRI in May 2025. Examination today reveals no suspicious findings in either breast. She should return in 6 months for follow-up examination. Coding Level of Care Code Est Pt Level 3 (81038) Complex EM visit Add On G2211 Diagnoses Family history of breast cancer in first degree relative Z80.3 At high risk for breast cancer Z91.89
[2025-03-13 08:22] VITALS: BP 149/83; PULSE 78; BMI 25.5
== END 2025-03-13 08:33 | disposition home or self-care (01) ==
LOC: HO.HGS 08:08
PROVIDERS: PCP Internal Medicine; Visit Provider Surgery
DX: Z80.3 Family history of malignant neoplasm of breast (principal); Z91.89 Other specified personal risk factors, not elsewhere classified
CPT/HCPCS: 99213

== ENCOUNTER → 2025-06-02 08:06 | Outpatient (BNV) | payer OTHER, SELFPAY | PROVIDERS: PCP Internal Medicine; Visit Provider Internal Medicine | DX: Z80.3 Family history of malignant neoplasm of breast (principal) | CPT/HCPCS: 77049 ==

== ENCOUNTER 2025-06-02 08:44 | Outpatient (REF) | payer OTHER, SELFPAY ==
--- NOTE | ~2025-06-02 | MR_ITS ---
EXAMINATION: MR BREAST WITHOUT AND WITH CONTRAST, BILATERAL CLINICAL INFORMATION: High risk strong family history of breast cancer including patient's sister. COMPARISON: Comparison is made with relevant prior imaging. TECHNIQUE: MR imaging of the breast was performed using T1, T2 and fat saturated techniques. Dynamic multiphase imaging was also performed after the administration of intravenous gadolinium contrast agent. Computer generated 3D reconstruction and enhancement kinetic analysis was ulitized by the radiologist in the interpretation of this examination. FINDINGS: Breast composition: Heterogeneous fibroglandular breast tissue Background parenchymal enhancement: Moderate LEFT BREAST: No suspicious enhancing masses or areas of non mass enhancement. No axillary or internal mammary adenopathy. RIGHT BREAST: No suspicious enhancing masses or areas of non mass enhancement. No axillary or internal mammary adenopathy. Limited views of the chest and abdomen are unremarkable. MR/MR breast BI wo/w con IMPRESSION: No MR specific evidence of malignancy. ASSESSMENT: LEFT BREAST: BI-RADS 1-Negative RIGHT BREAST: BI-RADS 1-Negative RECOMMENDATIONS: Yearly screening mammography Yearly Breast MRI screening surveillance. Electronically signed by: Laura Ford DO 06/03/2025 02:39 PM EDT
--- OUTSIDE RECORDS SUMMARY | 2025-06-02 09:17 | XMS_ITS | Clinical Summary ---
Author Organization [address] [facility] Address [address] [place] [address] Phone Care Team Providers Care Mechanical Energy Engineer Name Role Phone Fish Dodson NP Primary Care Provider [phone] Encounters Date Type Department Care Team Description 03/03/2025 11:57 AM EDT - 03/03/2025 11:59 PM EDT Hospital Encounter [facility] Xray [address] [place] [address] Pain in right elbow Discharge Disposition: Home or Self Care from Last 3 Months Social History Tobacco Use Types Packs/Day Years Used Date Smoking Tobacco: Never Assessed Comments Unknown Sex and Gender Information Value Date Recorded Sex Assigned at Not on file Legal Sex Female 6:44 AM EST Gender Identity Not on file Sexual Orientation Not on file Plan of Treatment Health Maintenance Due Date Last Done Comments Breast Cancer Screening 1965 Colorectal Cancer Screening: Colonoscopy 1965 Hepatitis B Vaccines (1 of 3 - 19+ 3-dose series) 1984 Pneumococcal Vaccine: 50+ Years (1 of 1 - PCV) 2015 Zoster Vaccines (1 of 2) 2015 HIV Screening 07/10/2022 Hepatitis C Screening 07/10/2022 Social Influencers of Health Screening 07/10/2022 Depression Screening 08/07/2024 COVID-19 Vaccine (2024-2 6 season) 2025 08/27/2021, 12/03/2020, 11/04/2020 Influenza Vaccine (#1) 2025 , 06/06/2022, 06/04/2021 Cervical Cancer Screening: P ap Smear 01/11/2028 01/10/2025 Cholesterol Screening (Lipid Panel) 12/09/2029 12/09/2024 DTaP,Tdap,and Td Vaccines (2 - Td or Tdap) 06/06/2032 06/06/2022 RSV Immunization Adult Patients (1 - 1-dose 75+ series) 2040 HIB Vaccines Aged Out No longer eligi ble based on patient's age to complete this topic HPV Vaccines Aged Out No longer eligi ble based on patient's age to complete this topic Hepatitis A Vaccines Aged Out No long er eligible based on patient's age to complete this topic IPV Vaccines Aged Out No longer eligi ble based on patient's age to complete this topic MMR Vaccines Aged Out No longer eligi ble based on patient's age to complete this topic Meningococcal ACWY Vaccine Aged Out N o longer eligible based on patient's age to complete this topic Meningococcal B Vaccine Aged Out No l onger eligible based on patient's age to complete this topic RSV Immunization Patients Under 20 months Aged Out No longer eligible b ased on patient's age to complete this topic Varicella Vaccines Aged Out No longer eligible based on patient's age to complete this topic Procedures Procedure Name Priority Date/Time Associated Diagnosis Comments XR ELBOW 2 VIEWS RIGHT Routine 03/03/2025 12:18 PM EDT Pain in right elbow PAP SMEAR Routine 01/10/2025 12:00 AM EDT Encounter for gynecological examination (general) (routine) without abnormal findings LIPID PANEL WITH REFLEX TO DIRECT LDL Routine 12/09/2024 9:22 AM EDT Hyperlipemia Abnormal blood chemistry from Last 3 Months or Most Recently Relevant to Health Maintenance Results * XR Elbow 2 Views Right (03/03/2025 12:18 PM EDT) Anatomical Region Laterality Modality Upper Extremities, Elbow Right Radiogr aphic Imaging 03/04/2025 12:0 6 PM EDT Impressions 03/04/2025 12:08 PM EDT Minimally displaced, acute fracture of the radial head with associated joint effusion. Code 40045 -------- FINAL REPORT -------- Dictated By: Simba Louise Dictated Date: 03/04/2025 12:06 ET Assigned Physician: Simba Louise Reviewed and Electronically Signed By: Simba Louise Signed Date: 03/04/2025 12:08 ET Workstation ID: [id number] Transcribed By: Self Edit Transcribed Date: 03/04/2025 12:06 ET Narrative 03/04/2025 12:08 PM EDT HISTORY: The patient is a 59-year-old female with right elbow pain following a fall. FINDINGS: AP, lateral, and oblique views of the right elbow are obtained. The study demonstrates a minimally displaced acute fracture of the radial head. No other fracture is seen and there is no dislocation. A joint effusion is present as evidenced by displacement of the anterior and posterior fat pads. Procedure Note Simba Louise MD - 03/04/2025 HISTORY: The patient is a 59-year-old female with right elbow painfollowing a fall. FINDINGS: AP, lateral, and oblique views of the right elbow are obtained.The study demonstrates a minimally displaced acute fracture of the radialhead. No other fracture is seen and there is no dislocation. A jointeffusion is present as evidenced by displacement of the anterior andposterior fat pads. IMPRESSION: Minimally displaced, acute fracture of the radial head with associatedjoint effusion. Code 03677 -------- FINAL REPORT -------- Dictated By: Simba Louise Dictated Date: 03/04/2025 12:06 ET Assigned Physician: Simba Louise Reviewed and Electronically Signed By: Simba Louise Signed Date: 03/04/2025 12:08 ET Workstation ID: [id number] Transcribed By: Self Edit Transcribed Date: 03/04/2025 12:06 ET us Tiffanie GUZMAN IMG XR PROCEDURES Final Resu lt * Pap smear (01/10/2025 12:00 AM EDT) Interpretation Negative for intraepithelial lesion or malignancy 01/15/2025 1:23 PM EDT [facility]) [facility] General Categorization Negative 01/15/2025 1:23 PM EDT [facility] Specimen Adequacy Satisfactory for evaluation, endocervical/savage sformation zone component present 01/15/2025 1:23 PM EDT [facility] Pap Methodology Liquid Based Pap Test 01/15/2025 1:23 PM EDT [facility] Disclaimer The Pap test is a screening test which carries an inherent false negative rate. These test results should be correlated with the patient's clinical findings and history. This Pap test was processed using an automated screening system. Technical cytopathology services provided by [facility], at [address] [place] [id number] (CLIA # [id number]/James Van MD, Biochemistry Teacher.) 01/15/2025 1:23 PM T [facility] Console Pap Interpretation Reported 01/15/2025 1:23 PM T [facility] Brushing/Spatula Cervix uteri structure / Unknown 01/10/2025 01/13/2025 7:28 AM EDT us yDlan Morales MD LAB CYTOLOGY ORDERABLES Final Result [facility] [address] [place] [address], * (ABNORMAL) Lipid panel with reflex to direct LDL (12/09/2024 9:22 AM EDT) Cholesterol 243(H) 0 - 200 mg/dL LAB CHEMISTRY METHOD 12/09/2024 10:44 AM EDT [facility] Triglycerides 72 0 - 150 mg/dL LAB CHEMISTRY METHOD 12/09/2024 10:44 AM EDT [facility] HDL 85 >=40 mg/dL LAB CHEMISTRY METHOD 12/09/2024 10:44 AM EDT [facility] LDL Calculated 144(H) 0 - 100 mg/dL LAB CHEMISTRY METHOD 12/09/2024 10:44 AM EDT [facility] VLDL Cholesterol Suhail 14.4 mg/dL LAB CHEMISTRY METHOD 12/09/2024 10:44 AM EDT [facility] Non HDL Chol. (LDL+VLDL) 158(H) <145 mg/dL LAB CHEMISTRY METHOD 12/09/2024 10:44 AM EDT [facility] Chol/HDL Ratio 2.9 0.0 - 4.4 LAB CHEMISTRY METHOD 12/09/2024 10:44 AM EDT [facility] Blood Venous blood specimen / Unknown Venipuncture / Unknown 12/09/2024 9:22 AM EDT 12/09/2024 9:59 AM EDT Fish Dodson NP LAB BLOOD ORDERABLES Final Re sult [facility] [address] [place] [address], from Last 3 Months or Most Recently Relevant to Health Maintenance Insurance [employer] Care Teams Mechanical Energy Engineer Relationship Specialty Start Date End Date Fish Dodson, VINI [address] [address] PCP - General Nurse Practitioner 12/09/24
--- OUTSIDE RECORDS SUMMARY | 2025-06-02 09:17 | XMS_ITS | Encounter Summary ---
Author Organization [facility] Address [id number] [place] [id number] Care Team Providers Care Building And Grounds Supervisor Name Role Phone Fish Dodson VINI Primary Care Provider [phone] Encounter Details Date Type Department Care Team (Latest Contact Info) Description 01/13/2025 Lab Requisition [facility] [address] [place] [address] Dylan Morales MD [address] [address] Encounter for gynecological examination (general) [...] lesion or malignancy 01/15/2025 1:23 PM EDT [facility] General Categorization Negative 01/15/2025 1:23 PM EDT [facility] Specimen Adequacy Satisfactory for evaluation, endocervical/savage sformation zone component present 01/15/2025 1:23 PM [facility] Pap Methodology Liquid Based Pap Test 01/15/2025 1:23 PM [facility] Disclaimer The Pap test is a screening test which carries an inherent false negative rate. These test results should be correlated with the patient's clinical findings and history. This Pap test was processed using an automated screening system. Technical cytopathology services provided by [facility], at [address] [place] [address] (CLIA # [id number]/James Van MD, Paramedic.) 01/15/2025 1:23 PM [facility] Console Pap Interpretation Reported 01/15/2025 1:23 PM [facility] Brushing/Spatula Cervix uteri structure / Unknown 01/10/2025 01/13/2025 7:28 AM EDT us Dylan Morales MD LAB CYTOLOGY ORDERABLES Final Result [facility] [address] [place] [address], [place] [phone] documented in this encounter Visit Diagnoses Diagnosis Encounter for gynecological examination (general) (routine) without abnormal findings documented in this encounter Care Teams Building And Grounds Supervisor Relationship Specialty Start Date End Date Fish Dodson NP [address] [address] PCP - General Nurse Practitioner 12/09/24 documented as of this encounter
== END 2025-06-02 08:45 | disposition home or self-care (01) ==
LOC: HO.MRI 08:44
PROVIDERS: PCP Internal Medicine; Visit Provider Surgery
DX: Z91.89 Other specified personal risk factors, not elsewhere classified (principal); Z80.3 Family history of malignant neoplasm of breast
CPT/HCPCS: 77049; A9585